=== PATIENT | female | born 1970 | race Caucasian/White ===

== ENCOUNTER 2017-08-26 06:53 | Observation (INO) | payer OTHER ==
[2017-08-26] MEDS ORDERED: Aspirin 81 mg CHEW TAB* 81 MG TAB.CHEW PO ONE (06:59)
[2017-08-26 07:26] LABS: ABS Basophils 0.1 10^3/ul (0-0.2); ABS Eosinophils 0.2 10^3/ul (0-0.6); ABS Lymphocytes 2.4 10^3/ul (1.0-4.8); ABS Monocytes 0.6 10^3/ul (0-0.8); ABS Neutrophils 3.5 10^3/ul (1.5-7.7); ABS Nucleated RBC 0 10^3/ul; Eosinophil % 3.7 % (0-6); Hematocrit 41 % (35-47); Hemoglobin 13.8 g/dl (12.0-16.0); Lymphocyte % 35.4 % (25-47); Mean Corpuscular HGB Conc 34 g/dl (31-36); Mean Corpuscular Hemoglobin 30 pg (27-31); Mean Corpuscular Volume 88 fL (80-97); Mean Platelet Volume 8.6 um3 (7.4-10.4); Nucleated Red Blood Cells % 0; Platelet Count 319 10^3/ul (150-450); Red Blood Count 4.64 10^6/ul (4.0-5.4); Red Cell Distribution Width 14 % (10.5-15); White Blood Count 6.7 10^3/ul (3.5-10.8)
[2017-08-26 07:48] LABS: EGFR Non-African American 81.1 (>60)
--- NOTE | 2017-08-26 08:11 | RAD ---
HISTORY: Chest pain COMPARISONS: None VIEWS: 1: frontal portable view of the chest at 7:25 AM FINDINGS: LINES AND TUBES: None. CARDIOMEDIASTINAL SILHOUETTE: The cardiomediastinal silhouette is normal for portable technique. PLEURA: The costophrenic angles are sharp. No pleural abnormalities are noted. LUNG PARENCHYMA: The lungs are clear. ABDOMEN: The upper abdomen is clear. There is no subphrenic gas. BONES AND SOFT TISSUES: No bone or soft tissue abnormalities are noted. IMPRESSION: NO ACTIVE CARDIOPULMONARY DISEASE.
[2017-08-26] MEDS ORDERED: LORazepam TAB(*) 1 MG PO ONE (08:21)
--- NOTE | 2017-08-26 09:50 | ED ---
HPI Chest Pain - HPI Summary HPI Summary: Patient is a 47-year-old female with a history of obesity and anxiety presenting to the ED with the chief complaint of chest pain. She endorses a crushing chest pain to her midsternal area which radiates into the left shoulder and down the left arm. She is very tearful on arrival and appears to be very anxious. She states she travels a lot for work, does not smoke, denies any calf pain, denies any history of blood clots denies any cardiac history. Father has had stents placed at an old age, but denies any other family history. This pain was acute in onset as she was driving into work and continues on arrival. She states she has been feeling otherwise well, denies any cough, nausea, vomiting, diarrhea, constipation, sweats, chills or fevers. She states she felt well on awakening this morning. She endorses shortness of breath. She states this feels different than her anxiety attacks as her previous attacks never had symptoms of left arm pain. She denies any numbness or tingling in the ipsilateral arm. Symptoms are aggravated by nothing, alleviated with nothing. - History of Current Complaint Chief Complaint: EDChestPainROMI Time Seen by Provider: 08/26/17 06:59 Hx Obtained From: Patient Onset/Duration: Started Hours Ago Timing: Constant Initial Severity: Moderate Current Severity: Moderate Pain Intensity: 9 Pain Scale Used: 0-10 Numeric Chest Pain Location: Mid Sternal, Upper Sternal, Left Anterior Chest Pain Radiates: Yes Chest Pain Radiates To:: Shoulder, Arm Character: Crushing, Dull/Aching Aggravating Factor(s): Nothing Alleviating Factor(s): Nothing Associated Signs and Symptoms: Positive: Chest Pain, Anxiety, Recent Stress, Shortness of Breath, Lightheadedness, Palpitations. Negative: Vision Changes, Headaches, Numbness, Tingling, Weakness, Dizziness, Swelling, Syncope, Fever, Chills, Diaphoresis, Nausea, Cough, Productive Cough, Nonproductive Cough, Hemoptysis, Back Pain, Abdominal Pain, Calf Pain/Swelling, Vomiting, Bloody Sputum, Wheezing, Nasal Congestion, Edema, URI, Hoarseness, Sinus Discomfrot - Risk Factors Pulmonary Embolism Risk Factors: Recent Travel - And obesity TAD Risk Factors: Negative AMI/ACS Risk Factors: Obesity, Family History - Allergy/Home Medications Allergies/Adverse Reactions: Allergies Allergy/AdvReac Type Severity Reaction Status Date / Time Sulfa (Sulfonamide Allergy Hives Verified 08/26/17 07:20 Antibiotics) Home Medications: Home Medications Loratadine/Pseudoephedrine [Claritin-D 24 Hour 10-240 mg] 1 tab PO DAILY [History Confirmed 08/26/17] PMH/Surg Hx/FS Hx/Imm Hx Previously Healthy: Yes - Immunization History Hx Pertussis Vaccination: No Immunizations Up to Date: Unable to Obtain/Confirm Infectious Disease History: No Infectious Disease History: Denies: Traveled Outside the [place] in Last 30 Days - Social History Occupation: Employed Full-time Lives: With Family Alcohol Use: None Hx Substance Use: No Substance Use Type: Reports: None Hx Tobacco Use: Yes Smoking Status (MU): Unknown if Ever Smoked Do You Chew or Dip Tobacco: No Review of Systems Negative: Fever, Chills, Fatigue, Skin Diaphoresis Negative: Photophobia, Blurred Vision, Diplopia, Drainage Negative: Dental Pain, Sore Throat, Ear Ache Positive: Palpitations, Chest Pain Positive: Shortness Of Breath. Negative: Cough Negative: Abdominal Pain, Vomiting, Diarrhea, Nausea Genitourinary: Negative Positive: no symptoms reported, see HPI Negative: Arthralgia, Myalgia Negative: Headache, Weakness, Paresthesia, Numbness Positive: Anxious. Negative: Depressed All Other Systems Reviewed And Are Negative: Yes Physical Exam Triage Information Reviewed: Yes Vital Signs On Initial Exam: Initial Vitals Temp Pulse Resp BP Pulse Ox 97.7 F 87 16 151/91 100 08/26/17 06:55 08/26/17 06:55 08/26/17 06:55 08/26/17 06:55 08/26/17 06:55 Vital Signs Reviewed: Yes Appearance: Positive: Well-Appearing, Well-Nourished Skin: Positive: Warm, Skin Color Reflects Adequate Perfusion Head/Face: Positive: Normal Head/Face Inspection Eyes: Positive: EOMI, MADHAVI, Conjunctiva Clear Neck: Positive: Supple, No Lymphadenopathy Respiratory/Lung Sounds: Positive: Clear to Auscultation, Breath Sounds Present , Subcutaneous Emphysema Cardiovascular: Positive: RRR, Pulses are Symmetrical in both Upper and Lower Extremities. Negative: Tachycardia, Leg Edema Left, Leg Edema Right Musculoskeletal: Positive: Normal, Strength/ROM Intact Neurological: Positive: Sensory/Motor Intact, Alert, Oriented to Person Place, Time, Speech Normal Psychiatric: Positive: Anxious - Inconsolable crying AVPU Assessment: Alert - Raffi Coma Scale Best Eye Response: 4 - Spontaneous Best Motor Response: 6 - Obeys Commands Best Verbal Response: 5 - Oriented Coma Scale Total: 15 Diagnostics - Vital Signs Vital Signs Temp Pulse Resp BP Pulse Ox 08/26/17 08:45 17 08/26/17 08:35 75 38 132/94 98 08/26/17 08:06 24 133/78 08/26/17 08:00 76 22 97 08/26/17 07:35 79 25 133/96 99 08/26/17 07:06 83 15 100 08/26/17 07:05 86 20 174/104 100 08/26/17 06:55 97.7 F 87 16 151/91 100 - Laboratory Lab Results: Lab Results 08/26/17 08/26/17 08/26/17 Range/Units 07:11 07:11 07:11 WBC 6.7 (3.5-10.8) 10^3/ul RBC 4.64 (4.0-5.4) 10^6/ul Hgb 13.8 (12.0-16.0) g/dl Hct 41 (35-47) % MCV 88 (80-97) fL MCH 30 (27-31) pg MCHC 34 (31-36) g/dl RDW 14 (10.5-15) % Plt Count 319 (150-450) 10^3/ul MPV 8.6 (7.4-10.4) um3 Neut % (Auto) 51.7 (38-83) % Lymph % (Auto) 35.4 (25-47) % Charlotte % (Auto) 8.4 H (0-7) % Eos % (Auto) 3.7 (0-6) % Baso % (Auto) 0.8 (0-2) % Absolute Neuts (auto) 3.5 (1.5-7.7) 10^3/ul Absolute Lymphs (auto) 2.4 (1.0-4.8) 10^3/ul Absolute Monos (auto) 0.6 (0-0.8) 10^3/ul Absolute Eos (auto) 0.2 (0-0.6) 10^3/ul Absolute Basos (auto) 0.1 (0-0.2) 10^3/ul Absolute Nucleated RBC 0 10^3/ul Nucleated RBC % 0 INR (Anticoag Therapy) 0.90 (0.77-1.02) APTT 33.2 (26.0-36.3) seconds D-Dimer, Quantitative < 200 (Less Than 230) ng/mL Sodium (139-145) mmol/L Potassium (3.5-5.0) mmol/L Chloride (101-111) mmol/L Carbon Dioxide (22-32) mmol/L Anion Gap (2-11) mmol/L BUN (6-24) mg/dL Creatinine (0.51-0.95) mg/dL Est GFR ( Amer) (>60) Est GFR (Non-Af Amer) (>60) BUN/Creatinine Ratio (8-20) Glucose (70-100) mg/dL Lactic Acid (0.5-2.0) mmol/L Calcium (8.6-10.3) mg/dL Magnesium (1.9-2.7) mg/dL Total Bilirubin (0.2-1.0) mg/dL AST (13-39) U/L ALT (7-52) U/L Alkaline Phosphatase (34-104) U/L Total Creatine Kinase (10-223) U/L CK-MB (CK-2) (0.6-6.3) ng/mL Myoglobin (14.3-65.8) ng/mL Troponin I (<0.04) ng/mL B-Natriuretic Peptide 16 ( - 100) pg/mL Total Protein (6.4-8.9) g/dL Albumin (3.2-5.2) g/dL Globulin (2-4) g/dL Albumin/Globulin Ratio (1-3) Beta HCG, Quant mIU/mL 08/26/17 08/26/17 Range/Units 07:11 07:11 WBC (3.5-10.8) 10^3/ul RBC (4.0-5.4) 10^6/ul Hgb (12.0-16.0) g/dl Hct (35-47) % MCV (80-97) fL MCH (27-31) pg MCHC (31-36) g/dl RDW (10.5-15) % Plt Count (150-450) 10^3/ul MPV (7.4-10.4) um3 Neut % (Auto) (38-83) % Lymph % (Auto) (25-47) % Charlotte % (Auto) (0-7) % Eos % (Auto) (0-6) % Baso % (Auto) (0-2) % Absolute Neuts (auto) (1.5-7.7) 10^3/ul Absolute Lymphs (auto) (1.0-4.8) 10^3/ul Absolute Monos (auto) (0-0.8) 10^3/ul Absolute Eos (auto) (0-0.6) 10^3/ul Absolute Basos (auto) (0-0.2) 10^3/ul Absolute Nucleated RBC 10^3/ul Nucleated RBC % INR (Anticoag Therapy) (0.77-1.02) APTT (26.0-36.3) seconds D-Dimer, Quantitative (Less Than 230) ng/mL Sodium 140 (139-145) mmol/L Potassium 3.6 (3.5-5.0) mmol/L Chloride 106 (101-111) mmol/L Carbon Dioxide 25 (22-32) mmol/L Anion Gap 9 (2-11) mmol/L BUN 9 (6-24) mg/dL Creatinine 0.77 (0.51-0.95) mg/dL Est GFR ( Amer) 104.3 (>60) Est GFR (Non-Af Amer) 81.1 (>60) BUN/Creatinine Ratio 11.7 (8-20) Glucose 67 L (70-100) mg/dL Lactic Acid 2.1 H* (0.5-2.0) mmol/L Calcium 9.0 (8.6-10.3) mg/dL Magnesium 2.0 (1.9-2.7) mg/dL Total Bilirubin 0.30 (0.2-1.0) mg/dL AST 14 (13-39) U/L ALT 13 (7-52) U/L Alkaline Phosphatase 52 (34-104) U/L Total Creatine Kinase 159 (10-223) U/L CK-MB (CK-2) 2.6 (0.6-6.3) ng/mL Myoglobin 16.4 (14.3-65.8) ng/mL Troponin I 0.00 (<0.04) ng/mL B-Natriuretic Peptide ( - 100) pg/mL Total Protein 7.0 (6.4-8.9) g/dL Albumin 4.1 (3.2-5.2) g/dL Globulin 2.9 (2-4) g/dL Albumin/Globulin Ratio 1.4 (1-3) Beta HCG, Quant < 0.60 mIU/mL Result Diagrams: 08/26/17 07:11 08/26/17 07:11 Lab Statement: Any lab studies that have been ordered have been reviewed, and results considered in the medical decision making process. - Radiology No standard instances Xray Interpretation: No Acute Changes Radiology Interpretation Completed By: Radiologist - No acute cardiopulmonary disease - EKG No standard instances Cardiac Rate: NL EKG Rhythm: Sinus Rhythm ST Segment: Normal Ectopy: None EKG Comparison: Other - No comparison available Re-Evaluation - Re-Evaluation First Eval Change: Unchanged - Continues to be crying, very anxious despite hearing results of negative tests, offered Ativan. Patient agrees to this. Chest Pain Course/Dx - Course Course Of Treatment: During the course of treatment, the patient is evaluated for chest pain. Full cardiac workup obtained with an EKG showing normal sinus rhythm, read by Dr. Lloyd and myself, TANNER Rodney. Chest x-ray obtained with no active acute cardiopulmonary disease. Labs obtained and are unremarkable including a troponin at 0.00. I have obtained a d-dimer as the patient travels for work and is obese. PERC score 0. D-dimer is negative at < 200. I discussed all findings with patient who remains crying inconsolably and concerned for her health. I discussed the case with Dr. Lloyd at this time who suggests a repeat troponin. She is given an Ativan 1 mg by mouth. Repeat troponin is 0.00. Again, patient is made aware and continues to be anxious. I have offered her a follow-up with cardiology. I discussed this with Dr. Lloyd and he is agreeable to see patient. Dr. Lloyd suggests CTA chest/abdomen/ pelvis. This is negative for any findings. EKG repeated with NSR. Dr. Lloyd suggests admission for stress test. Patient is OK iwth this plan and Dr. Gaytan called, agrees to admit to obs. - Chest Pain Differential Diagnosis/HQI/PQRI: Angina, Chest Wall - Diagnoses Provider Diagnoses: Chest pain Discharge - Sign-Out/Discharge Documenting (check all that apply): Discharge/Admit/Transfer - Discharge Plan Condition: Stable Disposition: ADMITTED TO [facility] - Billing Disposition and Condition Condition: STABLE Disposition: [facility] [place]
[2017-08-26] MEDS ORDERED: Iohexol 350* (CONTRAST) 500 ML MDV IV ONE (10:57)
--- NOTE | 2017-08-26 11:55 | RAD ---
STUDY: CT angiography of the chest, abdomen and pelvis. INDICATION: Chest pain radiating to the back and shortness of breath COMPARISON: None. TECHNIQUE: Multidetector CT angiography of the chest, abdomen and pelvis were obtained from the lung apices to the ischial tuberosities after the intravenous injection of 100 mL Omnipaque 350. Reformats were created in the coronal and sagittal planes. 3-D vascular imaging was created from the source images and reviewed as well. ANGIOGRAPHIC FINDINGS: The centrilobular pulmonary arteries appear to fill adequately with contrast. Evaluation of the more distal pulmonary arteries is inadequate based on the bolus timing. The thoracic aorta is normal in size and morphology. There is no evidence of an aortic dissection. There is no pathologic aneurysmal dilatation. More inferiorly the abdominal aorta is also normal in size and morphology. The branch vessels from the aortic arch and abdominal aorta appear adequately patent at their origins. Contrast is seen filling through the iliac arteries into the bilateral femoral arteries. NON ANGIOGRAPHIC FINDINGS: Chest: The lungs are clear. There are no large pleural effusions. There is no mediastinal or hilar lymphadenopathy. The heart is grossly normal in appearance. Abdomen & Pelvis: In the right lobe of the liver there is a subcentimeter hypoattenuating focus with a Hounsfield unit consistent with fluid most compatible with a benign cyst. The liver is otherwise normal in appearance. The spleen, pancreas and adrenal glands are grossly normal in appearance. The gallbladder is normal. The kidneys are normal in appearance without focal mass, calcification or signs of hydronephrosis. The renal cortices enhance promptly and symmetrically on arterial phase imaging. The small and large bowel are not distended. The appendix is normal in appearance. There is no gross retroperitoneal or mesenteric lymphadenopathy. The pelvic viscera is normal in appearance. Bilateral fallopian tube clips are incidentally noted. Degenerative changes of the thoracic and lumbar spine includes loss of intervertebral disc height. Involving the anterior articulating services of T9/T10 as well as T10/T11 there is sclerotic change of the endplates. There is also sclerotic change of the inferior articulating endplates of L4. IMPRESSION: 1. No evidence of central or proximal lobar pulmonary embolism. Evaluation of the pulmonary arteries beyond the lobar branches is incomplete due to bolus timing. 2. No pathologic aneurysmal dilatation or acute dissection of the aorta. 3. Degenerative changes of the thoracic and lumbar spine as described above. 4. Additional chronic, degenerative and iatrogenic findings as described in the body of the report.
[2017-08-26] MEDS ORDERED: Nitroglycerin TAB 0.4 MG* 0.4 MG TAB SL ONE (12:23)
[2017-08-26] MEDS ORDERED: Morphine VIAL* 4 MG/ML VIAL (1 ml vial) IV PRN (12:37)
[2017-08-26] MEDS ORDERED: Ondansetron INJ* 2 MG/ML VIAL IV PRN (13:45)
[2017-08-26] MEDS: Heparin VIAL(*) 5000 UNITS/ML VIAL (FIVE THOUSAND) SUBCUT SCH ×2 (15:21→21:23)
--- NOTE | 2017-08-26 15:59 | HP ---
CC: Dr. Brown* HISTORY AND PHYSICAL: DATE OF ADMISSION: 08/26/17 PRIMARY CARE PROVIDER: Dr. Brown. ATTENDING PHYSICIAN WHILE IN THE HOSPITAL: Dr. Italia Gaytan* (report dictated by Stephan Cordero NP). CHIEF COMPLAINT: Chest pain. HISTORY OF PRESENT ILLNESS: Ms. Leggett is a 47-year-old female patient, who really has no past medical history. She smoked when she was a teenager. She has history of seasonal allergies and she works as an GUTTER INSTALLER. She comes into the ER today stating that she was on her way to work, she was driving up from [place] through [employer], she stopped at the [employer] there, got some food for lunch today. Unfortunately, she got back to the car, started heading towards [place], she started getting heaviness, pressure, tightness like someone is sitting on her chest that went into her back down her left arm. She says she has never had this pain before with exertion. She felt short of breath. She felt nauseated. She had numbness going down the left arm. She was concerned. She got closer and close to [place], things were getting worse. She diverted and decided to go right into the [facility], came here and was evaluated. The symptoms are gone now. She says these symptoms started between 6 and 7 o'clock this morning. She says they lasted the entire trip and they did resolve by the time she got into the ER. She does state that occasionally while in the ER, she has had some more episodes of chest discomfort, but it is not as severe and it is only lasting a few minutes and it goes away. She denies any recent fevers or chills in the last few days. During last month, she did have bronchitis. She did state that she recently had a GI bug with nausea, vomiting, and diarrhea, which again her symptoms have been resolved for the last week. She denies any abdominal pain. She denies any shortness of breath currently. She denies having any cough. No recent fevers or chills. She was concerned because of the chest discomfort. She came into the ED, was evaluated, and we were asked to evaluate for admission. PAST MEDICAL HISTORY: Significant for: 1. Seasonal allergies. 2. Obesity. PAST SURGICAL HISTORY: She has had sinus surgery. MEDICATIONS: Home medications include: Claritin with pseudoephedrine 1 tablet p.o. daily. ALLERGIES TO MEDICATIONS: Include SULFA. FAMILY HISTORY: Mother had history of obesity. Father did have an IN in his 60s. SOCIAL HISTORY: She did smoke in her teenage years. She does not smoke anymore. She has 3 children. She is engaged. Her surrogate decision maker is her fiance, Smith. She does work as an GUTTER INSTALLER. REVIEW OF SYSTEMS: There is no documented fever. She denied having any significant weight change. There was no double vision. There is no ear discharge. She denies having any rhinorrhea. There is no sore throat. There is no thyroid enlargement. She again admits to chest pain from my HPI. There is no shortness of breath. There is no abdominal pain. There was no nausea, no vomiting. No dysuria, no frequency. There was no seizure, there is no loss of consciousness. No pruritus and no skin ulcerations. Review of 14 systems completed, all others negative. PHYSICAL EXAMINATION GENERAL: At this time, Ms. Leggett is a 47-year-old female patient, she is sitting in the ED stretcher. She is morbidly obese. She does not appear to be in any acute distress. VITAL SIGNS: Blood pressure 133/97, pulse 83, respirations 20, O2 sat 99%, temperature 97.7. HEENT: Head is atraumatic and normocephalic. Eyes: EOMs are intact. Sclerae anicteric and not pale. Throat: Oral mucosa appears to be moist. No oropharyngeal erythema. NECK: Supple. LUNGS: Clear to auscultation bilaterally. No wheezes, rales, or rhonchi. HEART: Sounds S1 and S2. Regular rate and rhythm. No murmurs, rubs, or gallops. ABDOMEN: Soft, flat, nontender. Bowel sounds are present. EXTREMITIES: Pulses were 2+ throughout. She is moving all 4 extremities with 5 /5 strength. NEUROLOGIC: The patient is awake, alert, and oriented x3. Tongue midline. Heavy Machinery Operator were equal. No gross focal deficits. SKIN: Grossly intact. DIAGNOSTIC STUDIES/LAB DATA: WBC 6.7, RBC of 4.64, hemoglobin 13.8, hematocrit of 41, and platelet count of 319. INR is 0.90, PTT of 33.2. D- dimer less than 200. Sodium 140, potassium 3.6, chloride 106, bicarb 25, BUN 9, creatinine 0.77, glucose 67, lactate 2.1, calcium 9.0. Total bili 0.3, AST 14, ALT 13, alk phos 52. CK 159, Troponin 0, repeat troponin was 0. Her albumin was 4.1. Beta hCG was negative. She did have multiple imaging here in the ED. She had chest, abdomen, and pelvis CTA, impression: No evidence of central or proximal lobar PE. Evaluation of pulmonary arteries beyond the lobar branches is incomplete due to timing. No pathologic aneurysmal dilatation or acute dissection of aorta. Degenerative changes of the thoracic and lumbar spine. Additional chronic degenerative and iatrogenic findings were described in the body of the report. She did have a chest x-ray obtained today, impression: No active cardiopulmonary disease. There is an EKG, which showed a normal sinus rhythm, rate of 78. No ST elevations or T-wave inversions. Old medical records reviewed. ASSESSMENT AND PLAN: Ms. Leggett is a 47-year-old female patient coming into the ED today with complaints of chest pressure and heaviness while driving into work today. She was evaluated here in the ED. There was concern for chest pain. She will be admitted under observation status for: 1. Chest pain. She does have risk factors for coronary artery disease. She is morbidly obese. In addition to this, she also does have remote history of smoking and family history, albeit though the father had a heart attack in his 60s, but not in his 50s or earlier. Story is concerning. At this point, I do think that she does deserve another troponin, telemetry, and stress test. I would get an EKG in the morning as well and I will check a lipid panel and A1c. 2. Seasonal allergies. Continue her Claritin. I will hold the pseudoephedrine portion of this. 3. DVT prophylaxis. She will be placed on heparin subcu. 4. Code status. Full code. 5. Fluids, electrolytes, and nutrition. I recommend a heart-healthy diet. TIME SPENT: On the admission was 60 minutes, greater than half the time was spent [id number] with the patient obtaining my history of physical, the other half time was spent going over the plan of care with the patient and implementing plan of care. I did discuss the plan of care with my attending, Dr. Gaytan; she is in agreement. STEPHAN CORDERO, ELECTRIC APPLIANCE INSTALLER [id number]/[facility] #: [id number] LAURA
[2017-08-26] MEDS: ALPRAZolam TAB* 0.25 MG PO PRN (20:56)
[2017-08-27 05:36] LABS: ABS Basophils 0 10^3/ul (0-0.2); ABS Eosinophils 0.3 10^3/ul (0-0.6); ABS Monocytes 0.5 10^3/ul (0-0.8); ABS Nucleated RBC 0 10^3/ul; Eosinophil % 4.1 % (0-6); Hematocrit 40 % (35-47); Hemoglobin 13.5 g/dl (12.0-16.0); Lymphocyte % 43.6 % (25-47); Mean Corpuscular HGB Conc 34 g/dl (31-36); Mean Corpuscular Hemoglobin 30 pg (27-31); Mean Corpuscular Volume 88 fL (80-97); Mean Platelet Volume 8.9 um3 (7.4-10.4); Nucleated Red Blood Cells % 0; Platelet Count 324 10^3/ul (150-450); Red Blood Count 4.53 10^6/ul (4.0-5.4); Red Cell Distribution Width 14 % (10.5-15); White Blood Count 6.8 10^3/ul (3.5-10.8)
[2017-08-27] MEDS: Heparin VIAL(*) 5000 UNITS/ML VIAL (FIVE THOUSAND) SUBCUT SCH ×2 (05:36→12:08)
[2017-08-27 05:52] LABS: EGFR Non-African American 96.8 (>60)
[2017-08-27] MEDS ORDERED: Pseudoephedrine HCL ER TAB* 120 MG PO SCH (09:00)
[2017-08-27] MEDS ORDERED: Cetirizine* 10 MG TAB PO SCH (09:00)
[2017-08-27] MEDS ORDERED: Aspirin 81 mg CHEW TAB* 81 MG TAB.CHEW PO SCH (09:00)
[2017-08-27] MEDS: Acetaminophen TAB* 325 MG PO PRN ×2 (09:10→13:09)
--- NOTE | 2017-08-27 13:13 | RAD ---
Edited for charges. INDICATION: Chest pain, shortness of breath, obesity, tobacco use, family history of heart disease. COMPARISON: No relevant prior exams available on the [facility] for comparison. TECHNIQUE: August 26, 2017, 25.700 mCi of Tc-99m Myoview were administered IV. SPECT images of the heart were obtained. August 27, 2017. Under the direction of Dr. Thibodeaux, an exercise stress test was performed. The patient achieved a peak heart rate of 163 bpm, 93 % of the age-predicted maximum. Subsequently, the patient was given an IV injection of 25.900 mCi Tc-99m Myoview. SPECT images of the heart were obtained and a gated wall motion study was performed. FINDINGS: Gated wall motion images were obtained at stress and demonstrate hypokinesia at the septum. The calculated left ventricular ejection fraction is 62 % at stress and 61 % at rest. Estimated LEFT ventricular end diastolic volume is 91 mL at stress and 73 mL at rest. Transient ischemic dilatation (TID) 1.21. Based on review of the attenuation corrected and non corrected images there is a small grossly fixed perfusion defect at the mid anterior wall segment. This finding is located further lateral than typically seen for artifact related to RV insertion. No additional compelling LEFT ventricular perfusion defects evident at stress or rest. IMPRESSION: 1. Small infarct at the mid anterior wall segment. No compelling evidence for stress-induced ischemia. 2. Elevated TID favoring distal small vessel disease. 3. Hypokinesia at the septum. Normal range LEFT ventricular ejection fraction at stress and rest. ASSESSMENT: Low risk based on nuclear portion. Based on imaging criteria from ACC/AHA 2002 Guideline Update for the Management of Patients With Chronic Stable Angina Table 23. Noninvasive Risk Stratification. MTDD
--- NOTE | 2017-08-27 14:12 | DCNOTE ---
Subjective Date of Service: 08/27/17 Interval History: Some residual chest discomfort. No exercise outside of work. Objective Active Medications: Acetaminophen (Tylenol Tab*) 650 mg PO Q4H PRN PRN Reason: FEVER/PAIN Last Admin: 08/27/17 13:09 Dose: 650 mg Alprazolam (Xanax Tab*) 0.25 mg PO BID PRN PRN Reason: ANXIETY Last Admin: 08/26/17 20:56 Dose: 0.25 mg Aspirin (Aspirin 81 Mg Chew Tab*) 81 mg PO DAILY [facility] Last Admin: 08/27/17 09:06 Dose: 81 mg Cetirizine HCl (Zyrtec*) 10 mg PO DAILY [facility] Last Admin: 08/27/17 09:06 Dose: 10 mg Heparin Sodium (Porcine) (Heparin Vial(*)) 5,000 units SUBCUT Q8HR [facility] Last Admin: 08/27/17 12:08 Dose: Not Given Morphine Sulfate (Morphine Vial*) 2 mg IV Q4H PRN PRN Reason: PAIN Last Admin: 08/26/17 22:23 Dose: 2 mg Ondansetron HCl (Zofran Inj*) 4 mg IV Q6H PRN PRN Reason: NAUSEA Vital Signs - 8 hr 08/27/17 08:49 Temperature 98.4 F Pulse Rate 78 Respiratory 16 Rate Blood Pressure 118/77 (mmHg) O2 Sat by Pulse 97 Oximetry Oxygen Devices in Use Now: None Appearance: Alert, sitting up in bed. Somewhat anxious, otherwise looks comfortable. Eyes: No Scleral Icterus Respiratory: Symmetrical Chest Expansion and Respiratory Effort, Clear to Auscultation, Clear to Percussion Cardiovascular: NL Sounds; No Murmurs; No JVD, RRR, No Edema, - Extremities: No Edema, No Clubbing, Cyanosis, - Skin: No Rash or Ulcers, No Nodules or Sclerosis, - Neurological: Alert and Oriented x 3, NL Sensation Result Diagrams: 08/27/17 05:12 08/27/17 05:12 Additional Lab and Data: Lab Results 08/26/17 08/26/17 08/26/17 Range/Units 07:11 07:11 07:11 WBC 6.7 (3.5-10.8) 10^3/ul RBC 4.64 (4.0-5.4) 10^6/ul Hgb 13.8 (12.0-16.0) g/dl Hct 41 (35-47) % MCV 88 (80-97) fL MCH 30 (27-31) pg MCHC 34 (31-36) g/dl RDW 14 (10.5-15) % Plt Count 319 (150-450) 10^3/ul MPV 8.6 (7.4-10.4) um3 Neut % (Auto) 51.7 (38-83) % Lymph % (Auto) 35.4 (25-47) % [place] % (Auto) 8.4 H (0-7) % Eos % (Auto) 3.7 (0-6) % Baso % (Auto) 0.8 (0-2) % Absolute Neuts (auto) 3.5 (1.5-7.7) 10^3/ul Absolute Lymphs (auto) 2.4 (1.0-4.8) 10^3/ul Absolute Monos (auto) 0.6 (0-0.8) 10^3/ul Absolute Eos (auto) 0.2 (0-0.6) 10^3/ul Absolute Basos (auto) 0.1 (0-0.2) 10^3/ul Absolute Nucleated RBC 0 10^3/ul Nucleated RBC % 0 INR (Anticoag Therapy) 0.90 (0.77-1.02) APTT 33.2 (26.0-36.3) seconds D-Dimer, Quantitative < 200 (Less Than 230) ng/mL Sodium (139-145) mmol/L Potassium (3.5-5.0) mmol/L Chloride (101-111) mmol/L Carbon Dioxide (22-32) mmol/L Anion Gap (2-11) mmol/L BUN (6-24) mg/dL Creatinine (0.51-0.95) mg/dL Est GFR ( Amer) (>60) Est GFR (Non-Af Amer) (>60) BUN/Creatinine Ratio (8-20) Glucose (70-100) mg/dL Lactic Acid (0.5-2.0) mmol/L Calcium (8.6-10.3) mg/dL Magnesium (1.9-2.7) mg/dL Total Bilirubin (0.2-1.0) mg/dL AST (13-39) U/L ALT (7-52) U/L Alkaline Phosphatase (34-104) U/L Total Creatine Kinase (10-223) U/L CK-MB (CK-2) (0.6-6.3) ng/mL Myoglobin (14.3-65.8) ng/mL Troponin I (<0.04) ng/mL B-Natriuretic Peptide 16 ( - 100) pg/mL Total Protein (6.4-8.9) g/dL Albumin (3.2-5.2) g/dL Globulin (2-4) g/dL Albumin/Globulin Ratio (1-3) Beta HCG, Quant mIU/mL 08/26/17 08/26/17 Range/Units 07:11 07:11 WBC (3.5-10.8) 10^3/ul RBC (4.0-5.4) 10^6/ul Hgb (12.0-16.0) g/dl Hct (35-47) % MCV (80-97) fL MCH (27-31) pg MCHC (31-36) g/dl RDW (10.5-15) % Plt Count (150-450) 10^3/ul MPV (7.4-10.4) um3 Neut % (Auto) (38-83) % Lymph % (Auto) (25-47) % [place] % (Auto) (0-7) % Eos % (Auto) (0-6) % Baso % (Auto) (0-2) % Absolute Neuts (auto) (1.5-7.7) 10^3/ul Absolute Lymphs (auto) (1.0-4.8) 10^3/ul Absolute Monos (auto) (0-0.8) 10^3/ul Absolute Eos (auto) (0-0.6) 10^3/ul Absolute Basos (auto) (0-0.2) 10^3/ul Absolute Nucleated RBC 10^3/ul Nucleated RBC % INR (Anticoag Therapy) (0.77-1.02) APTT (26.0-36.3) seconds D-Dimer, Quantitative (Less Than 230) ng/mL Sodium 140 (139-145) mmol/L Potassium 3.6 (3.5-5.0) mmol/L Chloride 106 (101-111) mmol/L Carbon Dioxide 25 (22-32) mmol/L Anion Gap 9 (2-11) mmol/L BUN 9 (6-24) mg/dL Creatinine 0.77 (0.51-0.95) mg/dL Est GFR ( Amer) 104.3 (>60) Est GFR (Non-Af Amer) 81.1 (>60) BUN/Creatinine Ratio 11.7 (8-20) Glucose 67 L (70-100) mg/dL Lactic Acid 2.1 H* (0.5-2.0) mmol/L Calcium 9.0 (8.6-10.3) mg/dL Magnesium 2.0 (1.9-2.7) mg/dL Total Bilirubin 0.30 (0.2-1.0) mg/dL AST 14 (13-39) U/L ALT 13 (7-52) U/L Alkaline Phosphatase 52 (34-104) U/L Total Creatine Kinase 159 (10-223) U/L CK-MB (CK-2) 2.6 (0.6-6.3) ng/mL Myoglobin 16.4 (14.3-65.8) ng/mL Troponin I 0.00 (<0.04) ng/mL B-Natriuretic Peptide ( - 100) pg/mL Total Protein 7.0 (6.4-8.9) g/dL Albumin 4.1 (3.2-5.2) g/dL Globulin 2.9 (2-4) g/dL Albumin/Globulin Ratio 1.4 (1-3) Beta HCG, Quant < 0.60 mIU/mL Assess/Plan/Problems-Billing Assessment: - Patient Problems (1) Chest pain Status: Acute Code(s): R07.9 - CHEST PAIN, UNSPECIFIED SNOMED Code(s): 11307637 Comment: Atypical chest pain. Sedentary lifestyle. Troponin wnl x 4. Stress test "small infarct at the mid anterior wall segment". Discussed with Dr. Mata who will fup with pt. Stress test likely an artifactual false positive. (2) Anxiety Status: Acute Code(s): F41.9 - ANXIETY DISORDER, UNSPECIFIED SNOMED Code(s) : 65543404 Comment: Rx alprazolam 0.25 mg hs PNR # 5, 0 RF.
[2017-08-27 15:22] VITALS: BP 126/78
[2017-08-27] MEDS ORDERED: Ibuprofen TAB* 600 MG PO PRN (15:29)
[2017-08-27] MEDS: ALPRAZolam TAB* 0.25 MG PO PRN (15:39)
--- NOTE | 2017-08-27 19:30 | PN ---
"Progress Note - Progress Note Date of Service: 08/27/17 Note: Search Terms: braydon carmen, 1970 Search Date: 08/27/2017 07:28:46 PM The Drug Utilization Report below displays all of the controlled substance prescriptions, if any, that your patient has filled in the last twelve months. The information displayed on this report is compiled from pharmacy submissions to the Department, and accurately reflects the information as submitted by the pharmacies. This report was requested by: Iban Field | Reference #: [id number] There are no results for the search terms that you entered."
--- NOTE | 2017-08-27 23:16 | CONS ---
CC: Dr. Brian Brown; Hospitalist Service CARDIOLOGY CONSULTATION: DATE OF CONSULT: 08/27/17 PRIMARY CARE PHYSICIAN: Dr. Brian Brown. REASON FOR CONSULTATION: Chest pain. HISTORY OF PRESENT ILLNESS: Kasey Leggett is a 47-year-old [employer] with no prior cardiac history. Yesterday, she got up as usual, had some juice and a granola bar, was starting to drive to work, stop ped to get some water and snacks, got back in the car, was not eating anything she brought and after a couple of miles, she developed acute onset of chest discomfort in the mid substernal area that radi ated straight to the back, it then went to her left neck and down her left arm. She was driving to [place] and decided to come to the emergency department. She estimates that she had this sensation for about 2 hours. She tells me that in the emergency room, she was asked if she had a history of panic attacks and she did have one when her son was injured, but said this felt different. Emergency notes documented she was very anxious. The patient states that with this she had a headache and she remarked that her blood pressure was hig h on arrival to the emergency room and ED notes document 151/91. The patient states that although her chest discomfort resolved after a couple of hours she was given nitro, her headache worsened and she is continued to have headaches even until today. The patient denies any recent change in medications. No new [id number] medications, no nonster oidals. She does take Claritin-D every day for a longstanding sinus problems and had taken at that m orning. PAST MEDICAL HISTORY: The patient has a past medical history of: 1. Obesity. 2. Sinus problems for which she underwent sinus surgery a couple of years ago. 3. Seasonal allergies. MEDICATIONS: Outpatient medications include: Claritin-D 1 tablet daily. Current inpatient medications included: 1. Tylenol p.r.n. 2. Xanax p.r.n. 3. Aspirin 81 mg a day. 4. Zyrtec 10 mg a day. 5. Subcutaneous heparin. 6. Motrin p.r.n. 7. Morphine p.r.n. 8. Zofran p.r.n. 9. She was continued on her 12 hour Sudafed 240 mg a day. ALLERGIES: Include SULFA. FAMILY HISTORY: Significant that her father had a history of diabetes and had a heart attack in his 60s. She has a brother with diabetes. Her mother is overweight and there is a history of heart dise ase in her father's family. SOCIAL HISTORY: The patient is an [employer], does a lot of traveling with her job. Former smoker. No hist ory of alcohol abuse or recreational drug use. Mother of 3 children and lives with her aartianceSmith . REVIEW OF SYSTEMS: Negative for recent fevers, chills, sweats. No recent weight gain or weight loss . No recent travel. No change in medications. No over-the- counter medications. No change in diet . All other 14- point review of systems was unremarkable. PHYSICAL EXAM: On exam, the patient is 5 feet 7 inches, weighs 242 pounds with a BMI of 38. Vital s igns in the emergency department, blood pressure was as high as 174/104, pulse was 84 on arrival, she was afebrile on arrival, the respiratory rate ranging from 16 to 25 breaths per minute, oxygen satur ations have been 99% to 100% on room air. The time I examined her, her blood pressure is 126/78, pul se is 82, afebrile, respiratory rate 18 to 24, oxygen saturation 99%. General Appearance: Very overw [age] middle-aged woman, seated, in no acute distress. Psychologically, pleasant and cooperative. N eurologically, awake, alert and oriented to person, place and time. Cranial nerves II through XII in tact. Grossly normal sensory and motor function in the upper and lower extremities and normal gait. Skin: Warm, dry. No cyanosis or rashes. HEENT: Pupils are equal and round. Mucous membranes [address]. Neck: Without increased JVP or lymphadenopathy appreciated, although thick. Lungs: Breath helen nds were clear with good effort. No wheezes, rales, or rhonchi. Coronary: S1, S2, regular without murmurs or rubs. Abdomen: Overweight, active bowel sounds, soft. No appreciable epigastric discomfo rt or hepatomegaly. Lower extremities were free of edema with good distal pulses. DIAGNOSTIC STUDIES/LAB DATA: White count 6.8, hemoglobin 13.5, platelets 324. INR is 0.9, PTT 33. D-dimer less than 200. Sodium 137, potassium 4.0, chloride 105, bicarb 26, glucose 104, BUN 9, creat inine 0.66, magnesium 2.0. Troponin #1 0.00, #2 0.00, #3 0.00, #4 0.00. Total cholesterol 161, trig lycerides 139, LDL cholesterol 80, HDL cholesterol 53. Beta-hCG less than 0.6. A 12-lead ECGs shows normal sinus rhythm 83 beats a minute, ORS axis +60, normal AV and IV conduction times with normal FTs. Serial ECGs reviewed and showed no ST changes. Nuclear study was reviewed personally, it is reported by Radiology as low risk study with a small are a of infarct in the mid anterior wall segment. No compelling evidence of stress-induced ischemia, el evated TID index and hypokinesis of the septum. Her ejection fraction was normal at 62% stress and 6 1% rest. Exercise portion of the test not yet located. The patient admits she was very winded, but denied rep roduction of chest pain and at the time of this dictation, I do not have her blood pressure response to exercise or EKG images. My interpretation of the nuclear images was that there are normal perfusion at rest, a very tiny foca l area at the anterior wall at 12 o'clock with decreased uptake post stress seen on the attenuation c orrected and non-corrected images and the gaited portion of the study shows some dyskinetic areas, bu t this does not appear to be focal or coordinated areas. IMPRESSION AND PLAN: In summary, Kasey Leggett is a 47-year-old woman, who developed substernal ches t discomfort while driving, radiating to the back, neck and left arm, which she had for 2 hours with negative troponins and normal ECGs. Kasey's stress Myoview study has some perfusion abnormalities, but she is quite overweight, which incr eases the chance of false positives. I feel overall Kasey is at low risk for an acute ischemic presentation and a low risk for significant blockages. Her lipids are well controlled at home. Her blood pressure has been well controlled and I think if she had had 2 hours of anginal pain, her troponins would have bumped. I think there is a differential here of esophageal spasm or other noncardiac discomfort and reading t he ED notes with extreme emotional lability and crying, I think anxiety over her presentation likely contributed to hypertension, headaches and some components of this. I feel this patient is with negative troponins can go home. I provided her options of initiation of Norvasc, which could treat both esophageal spasm and vascular spasm, but she declined this stating th at when she was on lisinopril in the distant past, she got headaches from what she thought was too lo wer her blood pressure. Additional options for medical management would be to get rid of the Sudafed portion of her Claritin on a regular basis as this can contribute to vascular and esophageal spasm and in talking to her it s ounds like since her sinus surgery she may not even meet us on a regular basis. Additional options to look at her risk would include checking a high sensitivity C- reactive protein, calcium scoring CT scan. I do not feel a cardiac cath or a 64- slice CT is absolutely indicated. I f we were going to pursue further imaging beyond the calcium scoring CT and C-reactive protein, then I would favor the CT scan in this young woman. I did discuss her future risk of atherosclerotic hear t disease with her family history and discussed the importance of optimizing lifestyle getting more r egular exercise, which she is not getting and trying to do better in terms of diet. I could not elicit a particular history that would lead to reflux, which could spark esophageal spasm , but this would be another area that could be followed up by her primary care physician as an outpat ient. I told the patient if she desired, I would be happy to follow up with her as an outpatient if she desires. Thank you for allowing me to assist in this nice woman's care. [id number]/[facility] #: [id number]
--- NOTE | 2017-08-28 13:54 | DS ---
CC: Dr. Brian Brown; Dr. Mata* DISCHARGE SUMMARY: DATE OF ADMISSION: 08/26/17 DATE OF DISCHARGE: 08/27/17 HOSPITAL COURSE: This 47-year-old woman presented with chest pain. She had not really had this before. The day of admission, she was in the car driving to work. She got heaviness and pressure and tightness. She described as someone sitting on her chest, radiated. There was numbness in the left arm. There was some nausea. She recently had gotten over an episode of gastroenteritis. She was admitted to the telemetry unit. She had 4 troponin levels, all of which were within normal limits. She underwent a nuclear medicine stress test. There was a small hypoperfused anterior defect. Dr. Mata reviewed the scan and did a consultation on the patient. She felt that this was not a significant area of concern, it was a very small area. Regardless of whether it was positive or not, she thought most likely the patient did not need anything other than followup. Dr. Mata did note that the patient had some elevated blood pressure readings here. 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 She will stop using Claritin-D and will substitute plain Claritin as needed. She will follow up with Dr. Mata as well. I did give her 5 alprazolam to take at bedtime as the patient really felt this whole episode has caused her a lot of anxiety. She is concerned about being around to care for her 3 children, as I think she is the primary provider and is working quite a heavy schedule as it is. FINAL DIAGNOSES: 1. Atypical chest pain. 2. Anxiety. 3. Labile blood pressure. DISCHARGE MEDICATIONS: 1. Ibuprofen 600 mg q.6 hours p.r.n. 2. Alprazolam 0.25 mg h.s. p.r.n. 3. Claritin p.r.n. [id number]/[facility] #: [id number] MTDD
--- NOTE | 2017-08-28 14:04 | ED ---
Ronnie Regalado Julia, scribed for Jesu Lloyd MD on 08/26/17 at 1307 . Re-Evaluation - Re-Evaluation First Eval Change: Unchanged - Continues to be crying, very anxious despite hearing results of negative tests, offered Ativan. Patient agrees to this. Course/Dx - Course Course Of Treatment: Pt has risk factors of HTN in ED, obesity, and FMHx of CAD. Pt presents with classic CP symptoms. Pt has significant anxiety. CP is persistent in ED. EKGs and Troponin's are negative. Pt is willing to stary for a stress test. - Diagnoses Provider Diagnoses: Chest pain Discharge - Sign-Out/Discharge Documenting (check all that apply): Discharge/Admit/Transfer - Discharge Plan Condition: Improved Disposition: ADMITTED TO [facility] - Billing Disposition and Condition Condition: IMPROVED Disposition: [facility] [place] The documentation as recorded by the Ronnie gilliam Julia accurately reflects the service I personally performed and the decisions made by Gabino rose Jerry, MD.
== END 2017-08-27 18:55 | disposition home or self-care (01) ==
LOC: ED 06:53 → MEDTELE 13:18
PROVIDERS: ADMIT Internal Medicine; ATTEND Internal Medicine
DX: R07.89 Other chest pain (principal); F41.9 Anxiety disorder, unspecified; E66.9 Obesity, unspecified; Z87.891 Personal history of nicotine dependence; J30.2 Other seasonal allergic rhinitis; R09.89 Other specified symptoms and signs involving the circulatory and respiratory systems; R06.02 Shortness of breath; Z79.899 Other long term (current) drug therapy
CPT/HCPCS: 36415; 71045; 71275; 74174; 78452; 80048; 80053; 80061; 82550; 82553; 83036; 83605; 83735; 83874; 83880; 84484; 84702; 85025; 85379; 85610; 85730; 93005; 96374; 99283; A9270-GY; A9502; G0378; J2270; Q9967